=== PATIENT | female | born 2000 | race Two or more races ===

== ENCOUNTER 2021-04-13 01:42 | Emergency (ER) | payer SELFPAY ==
[~2021-04-13] VITALS: Ht 160 cm; Wt 55.0 kg
[2021-04-13 02:35] VITALS: BP 125/75
== END 2021-04-13 02:40 | disposition left against medical advice (07) ==
LOC: ER 01:42
DX: S09.8XXA Other specified injuries of head, initial encounter (principal); W01.0XXA Fall on same level from slipping, tripping and stumbling without subsequent striking against object, initial encounter; Y93.89 Activity, other specified; Y92.89 Other specified places as the place of occurrence of the external cause; Y99.8 Other external cause status; Z88.0 Allergy status to penicillin
CPT/HCPCS: 99281